=== PATIENT | female | born 1995 | race Caucasian/White ===

== ENCOUNTER 2018-05-17 17:18 | Outpatient (CLI) | payer OTHER ==
[2018-05-17 21:18] LABS: RAPID PLASMA REAGIN REACTIVE (NR)
[2018-05-17 21:51] LABS: RPR TITER 1:32 (0)
[2018-05-17] MEDS: PENICILLIN G BENZ 1.2 MIL UNIT SYG IM (23:45)
[2018-05-21 19:31] LABS: FLUORESCENT TREPONEMAL AB REACTIVE (NON-REACTIVE)
== END 2018-05-17 23:55 | disposition home or self-care (01) ==
LOC: OBT 17:18 → L-D 17:19 → OBT 23:55
DX: O98.113 Syphilis complicating pregnancy, third trimester (principal); Z3A.36 36 weeks gestation of pregnancy
CPT/HCPCS: 76815; 76818; 86592; 96372

== ENCOUNTER 2018-06-01 19:43 | Inpatient (IN) | payer OTHER ==
[2018-06-01] MEDS ORDERED: LACTATED RINGER'S 1,000 ML IV (19:53)
[2018-06-01] MEDS ORDERED: LIDOCAINE 1% (MPF) 30 ML INJ INJ (20:00)
[2018-06-01] MEDS ORDERED: METHYLERGONOVINE 0.2 MG INJ IM ×2 (20:00→23:00)
[2018-06-01] MEDS ORDERED: OXYTOCIN 30 UNITS/LR 500 ML IV ×2 (20:00→23:00)
[2018-06-01] MEDS ORDERED: CARBOPROST 250 MCG INJ IM ×2 (20:00→23:00)
[2018-06-01] MEDS ORDERED: IBUPROFEN 600 MG TAB PO (20:00)
[2018-06-01] MEDS ORDERED: BUTORPHANOL 2 MG INJ IV (20:00)
[2018-06-01] MEDS ORDERED: MISOPROSTOL 200 MCG TAB PR ×2 (20:00→23:00)
[2018-06-01] MEDS: LACTATED RINGER'S 1,000 ML IV ×2 (20:09→20:55)
[2018-06-01 20:14] LABS: ADD MAN DIFF? NO
[2018-06-01 20:17] LABS: BASOPHILS % 0.4 % (0.0-2.0); EOSINOPHILS # 0.3 10^3/ul (0.0-0.5); EOSINOPHILS % 2.9 % (0.0-7.0); HEMATOCRIT 31.2 % (37.0-47.0); HEMOGLOBIN 9.3 g/dl (12.0-16.0); LYMPHOCYTES # 2.1 10^3/ul (0.8-2.9); LYMPHOCYTES % 20.8 % (15.0-51.0); MEAN CORPUSCULAR HEMOGLOBIN 21.9 pg (29.0-33.0); MEAN CORPUSCULAR HGB CONC 29.8 g/dl (32.0-37.0); MEAN CORPUSCULAR VOLUME 73.6 fl (82.0-101.0); MEAN PLATELET VOLUME 9.8 fl (7.4-10.4); MONOCYTE # 0.6 10^3/ul (0.3-0.9); MONOCYTES % 5.8 % (0.0-11.0); NEUTROPHIL # 7.1 10^3/ul (1.6-7.5); NEUTROPHILS % 69.7 % (39.0-77.0); PLATELET COUNT 327 10^3/UL (140-415); RED BLOOD COUNT 4.24 10^6/ul (4.20-5.40); RED CELL DISTRIBUTION WIDTH 15.9 % (11.5-14.5)
[2018-06-01 20:17] LABS: WHITE BLOOD COUNT 10.1 10^3/ul (4.8-10.8)
[2018-06-01 20:36] LABS: INR 0.93; PROTIME 12.6 Sec (11.9-14.9)
[2018-06-01 20:37] LABS: PARTIAL THROMBOPLASTIN TIME 28.7 Sec (23.0-35.0)
[2018-06-01] MEDS: AMPICILLIN 2 GM/NS (PMX) 100 ML IV (20:45)
[2018-06-01] MEDS ORDERED: FENTAnyl 2MCG/ML-ROPIV 0.2% 100 ML (21:00)
[2018-06-01 21:04] LABS: HEPATITIS B SURFACE ANTIGEN NEGATIVE (NEGATIVE)
[2018-06-01] MEDS ORDERED: NALOXONE (0.4 MG/ML) INJ IV (21:30)
[2018-06-01] MEDS ORDERED: FENTAnyl 2MCG/ML-ROPIV 0.2% 100 ML BAG EPI (21:30)
[2018-06-01 22:31] LABS: AMPHETAMINE/METHAMPHETAMINE Negative (NEGATIVE); BARBITURATES Negative (NEGATIVE); BENZODIAZEPINES Negative (NEGATIVE); CANNABINOIDS Negative (NEGATIVE); COCAINE Negative (NEGATIVE); OPIATES Negative (NEGATIVE)
[2018-06-01] MEDS: LACTATED RINGER'S 1,000 ML IV* (22:31)
[2018-06-01] MEDS: OXYTOCIN 30 UNITS/LR 500 ML IV ×2 (22:32→22:46)
[2018-06-01] MEDS ORDERED: HYDROCODONE/APAP (5/325) TAB PO ×2 (23:00)
[2018-06-01] MEDS ORDERED: DIBUCAINE 1% 30 GM OINT TOP (23:00)
[2018-06-02] MEDS ORDERED: AMPICILLIN 1 GM/NS (PMX) 50 ML IV
[2018-06-02] MEDS: OXYTOCIN 30 UNITS/LR 500 ML IV (02:39)
[2018-06-02] MEDS: WITCH HAZEL/GLYCERIN PAD PR (02:41)
[2018-06-02] MEDS: BENZOCAINE 20% 56 ML SPRAY TOP (02:41)
[2018-06-02] MEDS: LANOLIN HPA 1 PKT TOP (02:41)
[2018-06-02] MEDS: IBUPROFEN 600 MG TAB PO ×5 (05:45→23:30)
[2018-06-02] MEDS: LACTATED RINGER'S 1,000 ML IV* ×3 (06:31→22:31)
[2018-06-02 06:49] LABS: ADD MAN DIFF? NO
[2018-06-02 06:52] LABS: WHITE BLOOD COUNT 12.2 10^3/ul (4.8-10.8)
[2018-06-02 06:52] LABS: BASOPHILS % 0.3 % (0.0-2.0); EOSINOPHILS # 0.2 10^3/ul (0.0-0.5); EOSINOPHILS % 1.7 % (0.0-7.0); HEMATOCRIT 27.7 % (37.0-47.0); HEMOGLOBIN 8.2 g/dl (12.0-16.0); LYMPHOCYTES # 2.6 10^3/ul (0.8-2.9); LYMPHOCYTES % 21.7 % (15.0-51.0); MEAN CORPUSCULAR HEMOGLOBIN 21.8 pg (29.0-33.0); MEAN CORPUSCULAR HGB CONC 29.6 g/dl (32.0-37.0); MEAN CORPUSCULAR VOLUME 73.7 fl (82.0-101.0); MEAN PLATELET VOLUME 9.7 fl (7.4-10.4); MONOCYTE # 0.8 10^3/ul (0.3-0.9); MONOCYTES % 6.7 % (0.0-11.0); NEUTROPHIL # 8.4 10^3/ul (1.6-7.5); NEUTROPHILS % 69.2 % (39.0-77.0); PLATELET COUNT 268 10^3/UL (140-415); RED BLOOD COUNT 3.76 10^6/ul (4.20-5.40); RED CELL DISTRIBUTION WIDTH 15.8 % (11.5-14.5)
[2018-06-02 16:45] LABS: RAPID PLASMA REAGIN REACTIVE (NR)
[2018-06-03] MEDS: IBUPROFEN 600 MG TAB PO ×2 (05:55→12:00)
[2018-06-03] MEDS: MEASLES,MUMPS,RUBELLA VACCINE INJ SC* (09:59)
[2018-06-03] MEDS: VARICELLA VACCINE LIVE/PF 1,350 UNIT/0.5 ML ML SC* (09:59)
[2018-06-03] MEDS: DIPHTH/TET/ACEL PERTUSS (ADULT) 0.5 ML VIAL IM* (11:25)
[2018-06-06 17:21] LABS: FLUORESCENT TREPONEMAL AB REACTIVE (NON-REACTIVE)
== END 2018-06-03 15:20 | disposition home or self-care (01) | DRG 807 ==
LOC: OBT 19:43 → PP1 06-02 00:17 → L-D 19:43 → OBT 19:56 → L-D 19:56
PROVIDERS: Obstetrics & Gynecology
PROC: 10E0XZZ Delivery of Products of Conception, External Approach (ICD-10-PCS; principal; 2018-06-01)
DX: O98.12 Syphilis complicating childbirth (principal); Z37.0 Single live birth; Z3A.38 38 weeks gestation of pregnancy; Z23 Encounter for immunization
CPT/HCPCS: 62319; 80307; 85025; 85610; 85730; 86592; 86850; 86900; 86901; 87340; 90715; 90716